=== PATIENT | female | born 1935 | race Caucasian/White ===

== ENCOUNTER 2021-05-01 08:22 | Day surgery (SDC) | payer MEDICARE, BC ==
[2021-05-01] VITALS (9 sets, daily range): BP systolic 94–138; BP diastolic 43–73
[~2021-05-01] VITALS: Ht 167.6 cm; Wt 65.7 kg
[2021-05-01] MEDS ORDERED: CLINDAMYCIN/D5W 900mg/50ml 50 ML IV ONE (09:05)
[2021-05-01] MEDS ORDERED: vancomycin/NS 1 GM ADD-VANTAGE 250 ML X 1 DOSE IV ONE (09:05)
[2021-05-01] MEDS ORDERED: BACL10TA2 PO (09:18)
[2021-05-01] MEDS ORDERED: LAN0.125T PO (09:18)
[2021-05-01] MEDS ORDERED: SPIR25TA5 PO (09:18)
[2021-05-01] MEDS ORDERED: DULO20CA18 PO (09:18)
[2021-05-01] MEDS ORDERED: HYDR-3973 PO (09:18)
[2021-05-01] MEDS ORDERED: FURO20TA4 PO (09:18)
[2021-05-01] MEDS ORDERED: MSC30T PO (09:18)
[2021-05-01] MEDS ORDERED: NITR0.4T51 (09:18)
[2021-05-01] MEDS ORDERED: WARF-55 PO (09:18)
[2021-05-01] MEDS ORDERED: LEVO100T9 PO (09:18)
[2021-05-01] MEDS ORDERED: DIPH-423 PO (09:19)
[2021-05-01 10:00] LABS: BASOPHILS # (AUTO) 0.1 X10'3 (0-0.2); BASOPHILS % (AUTO) 0.3 % (0-1); EOSINOPHILS # (AUTO) 0.1 X10'3 (0-0.9); EOSINOPHILS % (AUTO) 0.3 % (0-6); HEMATOCRIT 41.9 % (35.0-45.0); HEMOGLOBIN 14.2 g/dl (12.0-16.0); LYMPHOCYTES # (AUTO) 1.3 X10'3 (1.1-4.8); LYMPHOCYTES % (AUTO) 6.4 % (21-51); MEAN CORPUSCULAR HEMOGLOBIN 30.1 PG (27.0-31.0); MEAN CORPUSCULAR HGB CONC 33.9 g/dL (33.0-36.5); MEAN CORPUSCULAR VOLUME 88.8 FL (78-98); MEAN PLATELET VOLUME 8.5 FL (7.4-10.4); MONOCYTES % (AUTO) 5.3 % (2-12); NEUTROPHILS # (AUTO) 17.4 X10'3 (1.8-7.7); NEUTROPHILS % (AUTO) 87.7 % (42-75); PLATELET COUNT 289 X10'3 (140-440); RED BLOOD COUNT 4.72 X10'6 (4.20-5.60); RED CELL DISTRIBUTION WIDTH 13.7 % (11.5-14.5); WHITE BLOOD COUNT 19.8 X10'3 (4.5-11.0)
[2021-05-01] MEDS ORDERED: fentaNYL/PF 50MCG/1 ML 2ML syringe ONE (10:03)
[2021-05-01] MEDS ORDERED: LIDOcaine 1% w/EPI 1:100,000 30ml vial (MDV) ONE (10:03)
[2021-05-01] MEDS ORDERED: midazolam 1 mg/ML 2ml injection ONE ×3 (10:03→11:02)
[2021-05-01] MEDS ORDERED: vancomycin 1,000mg inj ONE (10:16)
[2021-05-01 10:18] LABS: ALBUMIN 3.3 G/DL (3.4-5.0); ANION GAP 9 (8-16); BLOOD UREA NITROGEN 25 MG/DL (7-18); BUN/CREATININE RATIO 28.1 (6.6-38.0); CALCIUM 9.3 MG/DL (8.5-10.1); CHLORIDE 100 MMOL/L (99-107); CREATININE 0.89 MG/DL (0.40-0.90); GLUCOSE 91 MG/DL (70-104); MAGNESIUM 2.1 MG/DL (1.5-2.4); POTASSIUM 4.5 MMOL/L (3.5-5.1); SODIUM 137 MMOL/L (135-145); TOTAL CARBON DIOXIDE 27.9 MMOL/L (24-32); eGFR 60 ML/MIN
[2021-05-01] MEDS ORDERED: HYDROcodone/acetaminophen 10/325mg tab PO PRN (12:10)
[2021-05-01] MEDS ORDERED: HYDROcodone/acetaminophen 5mg/325mg tablet PO PRN (12:10)
[2021-05-01] MEDS ORDERED: normal saline 1000ml 1,000 ML IV SCH (12:10)
[2021-05-01] MEDS ORDERED: pneumococcal 23-VAL P-sac vacc 25 mcg/0.5ml vial IMVAC ONE (14:20)
== END 2021-05-01 15:50 | disposition home or self-care (01) ==
LOC: SSTAY O 08:22
PROVIDERS: ATTEND Internal Medicine Cardiovascular Disease
DX: Z45.010 Encounter for checking and testing of cardiac pacemaker pulse generator [battery] (principal); I48.20 Chronic atrial fibrillation, unspecified; Z79.01 Long term (current) use of anticoagulants; M41.9 Scoliosis, unspecified; G89.29 Other chronic pain; Z86.711 Personal history of pulmonary embolism; Z90.710 Acquired absence of both cervix and uterus; Z98.890 Other specified postprocedural states; Z90.49 Acquired absence of other specified parts of digestive tract; Z88.0 Allergy status to penicillin; Z88.2 Allergy status to sulfonamides; Z88.8 Allergy status to other drugs, medicaments and biological substances; Z88.5 Allergy status to narcotic agent; Z82.3 Family history of stroke; Z82.49 Family history of ischemic heart disease and other diseases of the circulatory system
CPT/HCPCS: 33228; 36415; 80048; 83735; 85025; 85610; 93005; 99152; 99153; C1785; J2250; J3010; J3370; J3490; J7030; A4620; A6258